=== PATIENT | female | born 1935 | race Caucasian/White ===

== ENCOUNTER → 2016-06-24 | Outpatient (CLI) | payer MEDICARE ==
--- NOTE | 2016-06-24 17:20 | Diagnostic Imaging Report ---
PROCEDURE: MR imaging of the brain with and without contrast. TECHNIQUE: Multiplanar, multisequence MR imaging of the brain was performed with and without contrast. INDICATION: Vascular headache. FINDINGS: There are multifocal areas of diffusion restriction in the left parietal and left occipital lobe compatible with an acute CVA. There is prominence of the ventricles and sulci. There is moderate chronic microvascular ischemic disease. There is no hydrocephalus. There is no intracranial mass, hemorrhage or extra-axial fluid collection. The frontal, ethmoid, sphenoid and maxillary sinuses are clear. Mastoid air cells appear clear. The globes and intraorbital structures are unremarkable. The central arterial and dural venous sinus flow voids are preserved. IMPRESSION: 1. Multifocal areas of diffusion restriction in the left parietal and left occipital lobe compatible with acute CVA. 2. Atrophy and moderate severe chronic microvascular ischemic disease. 3. No hemorrhage. Dictated by: Dictated on workstation # [id number]
== END ==
LOC: RAD 15:29
PROVIDERS: ATTEND Physician Assistant
DX: G44.1 Vascular headache, not elsewhere classified (principal); R51 Headache
CPT/HCPCS: 70553; A9579